=== PATIENT | male | born 1960 | race Caucasian/White ===

== ENCOUNTER 2017-03-01 10:46 | Emergency (ER) | payer OTHER ==
[2017-03-01 11:42] LABS: BLOOD UREA NITROGEN 42 mg/dL (7-18); CALCIUM 9.1 mg/dL (8.7-10.7); CARBON DIOXIDE 21 mmol/L (21-32); CREATININE 1.3 mg/dL (0.6-1.3); GLUCOSE,RANDOM 130 mg/dL (70-99); POTASSIUM 4.1 mmol/L (3.5-5.1); SODIUM 141 mmol/L (136-145)
== END 2017-03-01 13:17 | disposition home or self-care (01) ==
LOC: ER 10:46
PROVIDERS: Internal Medicine
DX: M79.7 Fibromyalgia (principal); M54.5 Low back pain; J44.9 Chronic obstructive pulmonary disease, unspecified; I10 Essential (primary) hypertension; F17.210 Nicotine dependence, cigarettes, uncomplicated; Z79.899 Other long term (current) drug therapy
CPT/HCPCS: 36415; 72100; 80048; 82550; 96360; 96372; 99070; 99283-25